=== PATIENT | female | born 2000 | race Native Hawaiian/Other Pacific Islander ===

== ENCOUNTER 2022-05-19 07:25 | Outpatient (CLI) | payer OTHER ==
[2022-05-19 08:31] LABS: POTASSIUM 4.5 mmol/L (3.6-5.2)
[2022-05-19 09:15] LABS: PLATELET COUNT 880 K/uL (152-353)
== END 2022-05-19 19:31 | disposition home or self-care (01) ==
LOC: LABW 07:25
PROVIDERS: ATTEND Internal Medicine Gastroenterology
DX: R19.7 Diarrhea, unspecified (principal); D64.9 Anemia, unspecified; R12 Heartburn; R10.31 Right lower quadrant pain
CPT/HCPCS: 36415; 80053; 82705; 83630; 85027; 87015; 87045; 87324; 87328; 87329; 87338; 87449; 87899